=== PATIENT | female | born 1985 | race Caucasian/White ===

== ENCOUNTER 2018-01-31 09:56 | Emergency (ER) | payer OTHER ==
[~2018-01-31] VITALS: Ht 162.6 cm; Wt 60.3 kg
[2018-01-31] MEDS ORDERED: NORFLEX100MG PO (15:12)
[2018-01-31] MEDS ORDERED: ZANTAC150 MG PO (15:12)
[2018-01-31] MEDS ORDERED: IBUPROFEN800 MG PO (15:12)
[2018-01-31] MEDS ORDERED: INTESTINEX680 M1 PO (15:12)
== END 2018-01-31 15:43 | disposition home or self-care (01) ==
LOC: ER 09:56
DX: S13.4XXA Sprain of ligaments of cervical spine, initial encounter (principal); S30.0XXA Contusion of lower back and pelvis, initial encounter; M54.5 Low back pain; R11.11 Vomiting without nausea; V49.9XXA Car occupant (driver) (passenger) injured in unspecified traffic accident, initial encounter; Y93.89 Activity, other specified; Y92.488 Other paved roadways as the place of occurrence of the external cause; Y99.8 Other external cause status

== ENCOUNTER 2019-07-21 19:06 | Emergency (ER) | payer OTHER ==
[~2019-07-21] VITALS: Ht 162.6 cm; Wt 63.5 kg
[~2019-07-21 19:06] MED LIST: IBUPROFEN800 MG PO; INTESTINEX680 M1 PO; NORFLEX100MG PO; ZANTAC150 MG PO
[2019-07-21] MEDS ORDERED: DICLOFENAC SODI75 MG PO (20:46)
[2019-07-21] MEDS ORDERED: NORFLEX100MG PO (20:46)
== END 2019-07-21 21:13 | disposition home or self-care (01) ==
LOC: ER
DX: S13.4XXA Sprain of ligaments of cervical spine, initial encounter (principal); V49.9XXA Car occupant (driver) (passenger) injured in unspecified traffic accident, initial encounter; Y93.89 Activity, other specified; Y92.488 Other paved roadways as the place of occurrence of the external cause; Y99.8 Other external cause status

== ENCOUNTER 2022-11-09 18:56 | Emergency (ER) | payer OTHER ==
[~2022-11-09] VITALS: Ht 162.6 cm; Wt 68.0 kg
[~2022-11-09 18:56] MED LIST changes: +DICLOFENAC SODI75 MG PO
== END 2022-11-10 01:08 | disposition home or self-care (01) ==
LOC: ER 18:56
DX: O03.9 Complete or unspecified spontaneous abortion without complication (principal); D25.9 Leiomyoma of uterus, unspecified